=== PATIENT | male | born 1990 | race Caucasian/White ===

== ENCOUNTER 2023-03-18 08:10 | Emergency (ER) | payer OTHER, SELFPAY ==
[~2023-03-18] VITALS: Ht 177.8 cm; Wt 77.9 kg
[2023-03-18] MEDS ORDERED: LIDO5DIS41 TD (11:34)
[2023-03-18] MEDS ORDERED: LIDOCAINE 5% (LIDODERM) PATCH TD ONE (11:35)
[2023-03-18 11:53] VITALS: BP 146/72; TEMP 97.8; O2SAT 100
== END 2023-03-18 12:27 | disposition home or self-care (01) ==
LOC: M ED 08:10
DX: M54.50 Low back pain, unspecified (principal); F17.200 Nicotine dependence, unspecified, uncomplicated; F12.10 Cannabis abuse, uncomplicated; F10.10 Alcohol abuse, uncomplicated; Z79.891 Long term (current) use of opiate analgesic

== ENCOUNTER 2023-06-22 11:19 | Emergency (ER) | payer SELFPAY ==
[~2023-06-22] VITALS: Ht 177.8 cm; Wt 82.9 kg
[~2023-06-22 11:19] MED LIST: LIDO5DIS41 TD
[2023-06-22] MEDS ORDERED: CYCLOBENZAPRINE 5MG TABLET PO ONE (12:35)
[2023-06-22] MEDS ORDERED: LIDOCAINE 5% (LIDODERM) PATCH TD ONE (12:35)
[2023-06-22] MEDS ORDERED: KETOROLAC 30 MG/ML 1ML VIAL IM ONE (12:35)
[2023-06-22] MEDS ORDERED: CYCL-707 PO (14:39)
[2023-06-22] MEDS ORDERED: PRED20TA PO (14:39)
[2023-06-22] MEDS ORDERED: KETO10TAB PO (14:39)
[2023-06-22] MEDS ORDERED: LIDO5DIS41 TD (14:39)
[2023-06-22 14:50] VITALS: BP 135/74; TEMP 98.2; O2SAT 98
== END 2023-06-22 14:52 | disposition home or self-care (01) ==
LOC: M ED 11:19
DX: M51.16 Intervertebral disc disorders with radiculopathy, lumbar region (principal); M51.26 Other intervertebral disc displacement, lumbar region; F17.200 Nicotine dependence, unspecified, uncomplicated; F12.10 Cannabis abuse, uncomplicated; F10.10 Alcohol abuse, uncomplicated; Z79.52 Long term (current) use of systemic steroids; Z79.891 Long term (current) use of opiate analgesic; Z79.899 Other long term (current) drug therapy
CPT/HCPCS: 72125; 72131; 96372; 99283; J1885

== ENCOUNTER 2023-07-08 22:54 | Emergency (ER) | payer SELFPAY ==
[~2023-07-08] VITALS: Ht 177.8 cm; Wt 82.1 kg
[~2023-07-08 22:54] MED LIST changes: +CYCL-707 PO; +KETO10TAB PO; +PRED20TA PO
[2023-07-09 01:55] VITALS: BP 127/74; TEMP 98
== END 2023-07-09 02:51 | disposition home or self-care (01) ==
LOC: M ED 22:54
DX: M54.31 Sciatica, right side (principal); F12.10 Cannabis abuse, uncomplicated; Z79.891 Long term (current) use of opiate analgesic; Z79.899 Other long term (current) drug therapy